=== PATIENT | female | born 1985 | race Caucasian/White ===

== ENCOUNTER 2016-11-29 03:35 | Emergency (ER) | payer OTHER ==
[2016-11-29 05:02] LABS: PLATELET COUNT 195 x10^3mcL (130-400)
[2016-11-29 05:05] LABS: CALCIUM 10.8 mg/dL (8.5-10.1); CARBON DIOXIDE 22.8 mmol/L (21-32); CHLORIDE SERUM 102 mmol/L (98-107); CREATININE SERUM 0.9 mg/dL (0.6-1.0); GFR1 > 60 mL/min; GLUCOSE SERUM 123 mg/dL (74-106); POTASSIUM SERUM 3.7 mmol/L (3.5-5.1); SODIUM SERUM 135 mmol/L (136-145)
[2016-11-29 05:06] LABS: BASOPHIL % 0 % (0-2); RED CELL DISTRIBUTION WIDTH 16.6 % (11.5-14.5)
[2016-11-29 05:10] LABS: ALKALINE PHOSPHATASE 129 U/L (46-116); ALT/SGPT 17 U/L (14-59); AMYLASE 32 U/L (25-115); AST/SGOT 15 U/L (15-37); BILIRUBIN TOTAL 0.6 mg/dL (0.20-1.00); LIPASE 61 IU/L (73-393); TOTAL PROTEIN, SERUM 7.6 g/dL (6.4-8.2)
[2016-11-29 05:12] LABS: ALBUMIN 3.1 g/dL (3.4-5.0)
[2016-11-29 05:14] LABS: UA SPECIFIC GRAVITY 1.015 (1.005-1.035); microscopic required? YES; urine erythrocyte 1+ (NEGATIVE)
[2016-11-29 06:48] VITALS: BP 111/73
== END 2016-11-29 06:48 | disposition home or self-care (01) ==
LOC: ED 03:35
PROVIDERS: Emergency Medicine
DX: N10 Acute pyelonephritis (principal); Z79.899 Other long term (current) drug therapy
CPT/HCPCS: 36415; J2270; Q0162